=== PATIENT | male | born 1990 | race American Indian/Alaskan Native ===

== ENCOUNTER 2017-07-18 14:28 | Emergency (ER) | payer MEDICAID, OTHER ==
[2017-07-18 14:53] VITALS: BP 130/80; PULSE 60; RESP 16; TEMP 97.8; O2SAT 100
[2017-07-18 16:02] LABS: RBC URINE 1 /hpf (0-3); URINE BILIRUBIN NEGATIVE (NEGATIVE); URINE BLOOD NEGATIVE (NEGATIVE); URINE COLOR Yellow (YELLOW); URINE GLUCOSE (UA) NORMAL (Normal); URINE KETONE NEGATIVE (NEGATIVE); URINE LEUKOCYTE ESTERASE NEG Leu/uL (Negative); URINE PROTEIN NEGATIVE (NEGATIVE); WBC URINE 2 /hpf (0-5)
--- NOTE | 2017-07-18 16:38 | C.PDOC ---
History Of Present Illness 27 yo male w/o significant PMHx come in for evaluation of Right sided lower back pain gradually developed for past few days. Pt sts, " working a few jobs involving heavy lifting". Pt sts, yesterday noted some Right groin pain when was lifting heavy object. Otherwise, pt denies known direct trauma or injury, fever, chills, abd. pain, N/V, denies noted swelling over groin area, UTI sx, incontinence, saddle anesthesia, denies B/L LEs, weakness, sensory or vascular deficits. Ambulate to Ed for evaluation, not in nay apparent distress. Time Seen by Provider: 07/18/17 15:05 Chief Complaint (Nursing): Back Pain History Per: Patient Past Medical History Reviewed: Historical Data, Nursing Documentation, Vital Signs Vital Signs: Last Vital Signs Temp 97.8 F 07/18/17 14:51 Pulse 60 07/18/17 14:51 Resp 16 07/18/17 14:51 BP 130/80 07/18/17 14:51 Pulse Ox 100 07/18/17 17:17 - Medical History PMH: No Chronic Diseases Surgical History: No Surg Hx Family History: States: No Known Family Hx - Social History Hx Tobacco Use: Yes Hx Alcohol Use: No Hx Substance Use: No - Immunization History Hx Tetanus Toxoid Vaccination: No Hx Influenza Vaccination: Yes Hx Pneumococcal Vaccination: No Review Of Systems Except As Marked, All Systems Reviewed And Found Negative. Constitutional: Negative for: Fever, Chills ENT: Negative for: Throat Pain, Throat Swelling Cardiovascular: Negative for: Chest Pain Respiratory: Negative for: Cough, Shortness of Breath, Wheezing Gastrointestinal: Negative for: Nausea, Vomiting, Abdominal Pain, Diarrhea Genitourinary: Negative for: Dysuria, Frequency, Incontinence Musculoskeletal: Positive for: Back Pain Skin: Negative for: Rash Neurological: Negative for: Weakness, Numbness, Altered Mental Status, Dizziness Physical Exam - Physical Exam Appears: Well, Non-toxic, No Acute Distress Skin: Normal Color, Warm, Dry, No Rash, No Ecchymosis Eye(s): bilateral: PERRL Nose: No Flaring, No Discharge Oral Mucosa: Moist, No Drooling Throat: No Erythema, No Exudate, No Drooling Neck: Normal ROM, Trachea Midline, No Midline Cervical Tenderness, No Paracervical Tenderness, No Step Off Deformity, Supple Cardiovascular: Rhythm Regular Respiratory: No Decreased Breath Sounds, No Accessory Muscle Use, No Stridor, No Wheezing Gastrointestinal/Abdominal: Soft, No Tenderness, No Distention, No Guarding, No Rebound, No Hernia Back: No CVA Tenderness, No Vertebral Tenderness, Paraspinal Tenderness (mild Right lumbar), Other (mild reproducible tenderness along Right groin ligament. no palpable deformity or skin changes.) Male Genital: No Testicular Tenderness, No Testicular Swelling, No Inguinal Swelling, No Scrotal Swelling Extremity: Normal ROM, No Deformity, No Swelling Neurological/Psych: Oriented x3, Normal Speech, Normal Motor, Normal Sensation, Normal Reflexes ED Course And Treatment O2 Sat by Pulse Oximetry: 100 Pulse Ox Interpretation: Normal Progress Note: On re-evaluation, pt is afebrile, hemodynamicaly stable. Non- toxic. Ambulatory in ED with stable gait. ENT: no acute findings. Neck: Supple , (-) midline tenderness. Lungs: CTA B/L, BS equal B/L. ABd: benign, (-) hernia, (-) guarding, (-) rebound. Back: (-) CVA tenderness. : no evidence of inguinal hernia, no testicular tenderness or swelling. Neuorlogicaly intact. Pt has clinical findings c/w Right lumbar strain, Right sided groin strain. Pt advised. ref. to F/u with Ortho in 1-2 days for re-eval. return if any new changes. Disposition Counseled Patient/Family Regarding: Diagnosis, Need For Followup, Rx Given - Disposition Referrals: [facility] [Outside] Disposition: HOME/ ROUTINE Disposition Time: 16:10 Condition: STABLE Additional Instructions: LIght duty to lower back area, avoid heavy lifting, etc. Take medication for pain as need Follow up with PMD in 2-3 days for re-evaluation. Return to ED if any worsening or new changes. Prescriptions: Ibuprofen [Motrin Tab] 400 mg PO Q6 #14 tab Methocarbamol [Robaxin] 500 mg PO TID #14 tab Instructions: Groin Strain (ED), Lumbar Radiculopathy (ED) Forms: [employer] (Kyr[place]z), School Excuse - Clinical Impression Clinical Impression: Lumbar radiculopathy, Groin strain
== END 2017-07-18 17:03 | disposition home or self-care (01) ==
LOC: C.ER 14:28
DX: M54.16 Radiculopathy, lumbar region (principal); S39.011A Strain of muscle, fascia and tendon of abdomen, initial encounter; X50.0XXA Overexertion from strenuous movement or load, initial encounter; Y93.89 Activity, other specified; Y92.89 Other specified places as the place of occurrence of the external cause